=== PATIENT | male | born 1945 | race Caucasian/White ===

== ENCOUNTER 2018-06-04 11:00 | Inpatient (IN) ==
[2018-06-04 13:42] LABS: Appearance,Urine CLEAR; Bilirubin,Urine NEG (NEG); Color,Urine STRAW; Glucose,Urine (UA) NEGATIVE (NEG); Leukocyte Esterase,Urine NEG /uL (NEG); Protein,Urine NEG (NEG); Specific Gravity,Urine 1.011 (1.000-1.035); Urine Blood NEG mg/dL (<0.03); Urobilinogen,Urine NEG (NEG)
[2018-06-04 15:17] LABS: Basophils # (Auto) 0 K/mcL (0.0-0.3); Basophils % (Auto) 0.6 % (0.0-2.0); Eosinophils # (Auto) 0.4 K/mcL (0.0-0.7); Eosinophils % (Auto) 5.9 % (0.0-7.0); Granulocytes % (Auto) 53.6 % (38.0-78.0); Lymphocytes # (Auto) 2.2 K/mcL (1.5-4.8); Lymphocytes % (Auto) 33.2 % (15.5-49.0); Mean Cell Volume 88.3 fL (80.0-100.0); Mean Corpuscular HGB Conc 33.4 g/dL (31.0-36.0); Mean Corpuscular Hemoglobin 29.5 pg (26.0-34.0); Monocytes # (Auto) 0.4 K/mcL (0.1-0.9); Monocytes % (Auto) 6.7 % (1.0-12.0); Platelet Count 246 K/mcL (140-440); RBC 5.08 M/mcL (4.50-5.90); Red Cell Distribution Width 14.7 % (11.5-14.5)
[2018-06-04 15:42] LABS: Blood Urea Nitrogen 16 mg/dl (8-23)
[2018-06-10] MEDS ORDERED: ceFAZolin 1 GM VIAL IV SCH (07:00)
[2018-06-10] MEDS ORDERED: CELECOXIB 200 MG CAPSULE PO SCH (07:00)
[2018-06-10] MEDS ORDERED: oxyCODONE 10 MG TAB.ER.12H PO SCH (07:00)
[2018-06-10] MEDS ORDERED: PREGABALIN 75 MG CAPSULE PO SCH (07:00)
[2018-06-10] MEDS ORDERED: LIDOCAINE HCL/PF 100 MG/5 ML SYRINGE IV ONE (07:45)
[2018-06-10] MEDS ORDERED: ONDANSETRON 4 MG/2 ML VIAL IV ONE (07:45)
[2018-06-10] MEDS ORDERED: PROPOFOL 200 MG/20 ML VIAL IV ONE (07:45)
[2018-06-10] MEDS ORDERED: MIDAZOLAM 2 MG/2 ML VIAL IV ONE (07:45)
[2018-06-10] MEDS ORDERED: PHENYLEPHRINE 10 MG/ML VIAL IV ONE (07:45)
[2018-06-10] MEDS ORDERED: TRANEXAMIC ACID 1,000 MG/10 ML VIAL IV ONE ×2 (07:45→09:27)
[2018-06-10] MEDS ORDERED: KETAMINE 100 MG/ML ML IV ONE (07:45)
[2018-06-10] MEDS ORDERED: GLYCOPYRROLATE 0.2 MG/ML VIAL IV ONE (07:45)
[2018-06-10] MEDS ORDERED: HEPARIN 10,000 UNIT/ML VIAL IR ONE (08:21)
[2018-06-10] MEDS ORDERED: HEPARIN 20,000 UNIT/ML VIAL IR ONE (08:28)
[2018-06-10] MEDS ORDERED: MEPERIDINE 25 MG/ML SYRINGE IV PRN (09:27)
[2018-06-10] MEDS ORDERED: HYDROmorphone 2 MG/ML VIAL IV PRN (09:27)
[2018-06-10] MEDS ORDERED: BISACODYL 10 MG SUPP.RECT PR PRN (09:27)
[2018-06-10] MEDS ORDERED: METHOCARBAMOL 1,000 MG/10 ML VIAL IV PRN (09:27)
[2018-06-10] MEDS ORDERED: IPRATROPIUM/ALBUTEROL 3 ML AMPUL.NEB NEB PRN (09:27)
[2018-06-10] MEDS ORDERED: BENZOCAINE/MENTHOL 1 LOZENGE PO PRN (09:27)
[2018-06-10] MEDS ORDERED: PROMETHAZINE 25 MG/ML VIAL IV PRN (09:27)
[2018-06-10] MEDS ORDERED: FLEETS ADULT ENEMA PR PRN (09:27)
[2018-06-10] MEDS ORDERED: fentaNYL 100 MCG/2 ML VIAL IV PRN (09:27)
[2018-06-10] MEDS ORDERED: MAGNESIUM HYDROXIDE 30 ML ORAL.SUSP PO PRN (09:27)
[2018-06-10] MEDS ORDERED: POLYETHYLENE GLYCOL 3350 17 GM PACKET PO PRN (09:27)
[2018-06-10] MEDS ORDERED: ACETAMINOPHEN 1,000 MG/100 ML BOTTLE IV ONE (09:27)
[2018-06-10] MEDS ORDERED: ONDANSETRON 4 MG/2 ML VIAL IV PRN (09:27)
--- NOTE | 2018-06-10 09:27 | Brief Operative Note ---
Date of procedure: 06/10/18 Pre-op diagnosis: Right hip severe DJD Post-op diagnosis: same Procedure: Right anterior total hip arthroplasty Grafts/Implants: Yes (Depuy Actis 6 Hi stem, +5 36 delta head, 54 cup, neutral altrx liner) Anesthesia: spinal, GLMA Findings: severe arthritis Complications: other (femur fracture) Complications Description: 06/10/18 09:26 crack in calcar while impacting the final stem, placed a cerclage wire Surgeon: Malvin Harkins Cotton Roll Packer: Obinna David Estimated blood loss (cc): 250 Specimens Removed/Pathology: none sent Condition: stable Disposition: PACU
[2018-06-10] MEDS ORDERED: LACTATED RINGERS 1,000 ML IV SCH (09:30)
--- NOTE | 2018-06-10 10:28 | Operative Note ---
DATE OF OPERATION: 06/10/2018 PREOPERATIVE DIAGNOSIS: Right hip severe osteoarthritis. POSTOPERATIVE DIAGNOSIS: Right hip severe osteoarthritis. PROCEDURE PERFORMED: Right anterior total hip arthroplasty placing a DePuy Actis size 6 high offset femoral stem; a +5, 36 mm delta ceramic head; a 54 [place] cup with a neutral Altrx liner. SURGEON: Malvin Harkins M.D. WAITER WAITRESS: Rigoberto David PA-C. ANESTHESIA: Spinal plus general. DRAINS: None. SPECIMENS: None. COMPLICATIONS: Calcar fracture upon implanting the stem which was treated with a cerclage cable. POSTOPERATIVE CONDITION: Stable. INDICATIONS FOR SURGERY: This is a 73-year-old male who has had longstanding worsening right hip pain. Radiographs showed severe ldfi-[id number] osteoarthritis. FINDINGS AT SURGERY: Severe arthritis. Post implantation showed acceptable limb alignment and length and offset. PROCEDURE IN DETAIL: The patient had been seen preoperatively and informed consent had been obtained after discussion of risks and benefits of surgery. Risks including, but not limited to, bleeding, possibly requiring transfusion; infection, possibly requiring implant removal and prolonged IV antibiotics; injury to nerves, blood vessels, other surrounding structures; anesthetic risks; incomplete or no resolution of symptoms; leg length discrepancy; dislocation; fracture; DVT and pulmonary embolus risks; and the possibility of needing further revision surgery. He understood these risks and wished to proceed. Correct operative site was marked and then patient received spinal anesthesia. He was then taken to the operating room and LMA general given. The patient was carefully positioned on the fracture table and the right hip and groin were carefully prepped and draped in normal sterile fashion, and timeout was performed verifying patient name, operative site, and plan. Standard anterior approach incision was made with a scalpel through skin and subcutaneous tissue. Hemostasis was obtained with Bovie cautery. Careful blunt dissection was taken down onto the tensor fascia, and this was undermined circumferentially. We then irrigated with Irrisept. We then placed a ring retractor. We then incised the tensor fascia in line with the muscle fibers. Careful blunt dissection was taken medial to the muscle belly and blunt cobra retractors were placed on the superior and inferior neck. The circumflex vessels were coagulated and cut and split and vastus fascia split distally. Anterior capsulectomy was performed and capsule releases taken out to the trochanters. A corkscrew was placed in the femoral head and then osteotome was used under fluoro to identify our neck cut. We then made our neck cut. Due to the tightness of the hip, we went ahead and did a napkin ring resection. However, we did notice that the femoral head split upon placement of the corkscrew. This necessitated taking the head out in fragments. We then exposed the acetabulum. Labrum was excised circumferentially. We then began medializing with the reamer directly until we were down to the teardrop. We then started increasing reamer size and angle until we got some rim ream with a 53 reamer. We opened a 54 cup. The acetabulum was irrigated with Irrisept. After a minute we pulse lavaged copiously with saline, and then using the [id number] we impacted the cup at approximately 35 degrees of inclination and 25 degrees of anteversion. We did get excellent press-fit, so we removed the [id number] and placed a center hole cover. Anterior and inferior osteophytes were removed with a curved osteotome and then a neutral Altrx liner was carefully aligned and impacted. We then released traction from the leg, externally rotated and released capsule around the medial and posterior neck. We then extended and adducted the leg and released capsule out to the greater trochanter. Once we had adequate exposure, we used a box osteotome to open the canal and then an awl to identify canal trajectory. We then used a rasp and rongeur to lateralize and then began sequentially broaching with the [id number]. We went up to a size 5, which we did minimal calcar planing. A high offset neck trial was placed and a +1 head ball. The hip reduced very easily. We then took AP pelvis of the hip to verify neutral rotation and then an AP of the nonoperative and operative hips were taken and overlaid. Our leg lengths did not appear way different, however, we did note that the stem appeared undersized. We went ahead and redislocated and exposed the proximal femur. I was able to impact with the [id number]. The size 5 broached down a few millimeters below our neck cut, so we removed the 5 broach, went up to a size 6. This seated right at our neck cut. We went ahead and removed the 6 broach. We irrigated with Irrisept. After a minute, pulse lavaged with saline. The 6 stem was started with the handle until we got down to about a centimeter from the collar seating. We then used the [id number] and upon impacting with [id number], we noticed a crack in the calcar. We at this point stopped impacting and placed a cerclage cable, [place] cable, which was tensioned. We verified reduction under fluoro and good position. The cable was placed below the greater but above the lesser trochanter. We then crimped this and cut the cable, re-exposed the proximal femur and completed the impaction of the stem down onto the calcar. We then decided to go with a +5 head ball due to the decreased offset, so we went ahead and cleaned and dried the stem. A +5, 36 head ball was impacted. The hip was reduced. There was better tension this time. Final fluoro images were taken and saved which showed good component position and leg length with slight under offset. These images were saved and printed. We irrigated with Irrisept, after a minute we pulse lavaged with saline. We then used #1 Vicryl running stitch; one proximal, one running distal. We removed the ring retractor and irrigated Irrisept again. After a minute pulse lavaged with saline and then tacked fat to fascia with Vicryl and 2-0 Monocryl for subcutaneous and madi for skin. Xeroform and sterile dressing were applied. The patient was then awakened, extubated, and transferred to recovery in stable condition. ISABEL:dung Job ID: [id number] Doc ID: [id number] Malvin Harkins MD
[2018-06-10] MEDS: 0.9 % SODIUM CHLORIDE 1,000 ML IV SCH ×2 (10:46→21:30)
--- NOTE | 2018-06-10 11:22 | XRay Report ---
CLINICAL INFORMATION: Post-op Total Hip COMPARISON: None. FINDINGS: Total hip prostheses is anatomically aligned. There is minimal degeneration in both SI joints. Left hip is normal. Soft tissue swelling over the surgical site seen - as expected. IMPRESSION: Negative Interpreted and Authenticated by: Dustin Augustine 06/10/18
[2018-06-10] MEDS ORDERED: 0.9 % SODIUM CHLORIDE 500 ML IV ONE (12:51)
[2018-06-10] MEDS: 0.9 % SODIUM CHLORIDE 10 ML SYRINGE IV SCH ×2 (12:58→23:48)
[2018-06-10] MEDS: KETOROLAC 15 MG/ML VIAL IV PRN ×2 (15:09→21:23)
[2018-06-10] MEDS: ceFAZolin 1 GM VIAL IV SCH ×2 (15:09→23:25)
[2018-06-10] MEDS: oxyCODONE/APAP 5/325MG TABLET PO PRN (15:10)
--- NOTE | 2018-06-10 16:11 | XRay Report ---
CLINICAL INFORMATION: RIGHT TOTAL HIP ARTHROPLASTY-ANTERIOR COMPARISON: None. FINDINGS: Multiple digital images are submitted from the operating room there are placement of a total right hip prostheses - anterior approach. Final film shows right total hip prostheses anatomically aligned. Cerclage wire buttressing the intertrochanteric region. No osseous abnormality. IMPRESSION: Right total hip prostheses in anatomic alignment. Interpreted and Authenticated by: Dustin Augustine 06/10/18
[2018-06-10] MEDS ORDERED: SENNOSIDES 1 TABLET PO SCH (21:00)
[2018-06-10] MEDS: ASPIRIN 325 MG ENTERIC COATED TABLET PO SCH (21:23)
[2018-06-10] MEDS: DOCUSATE SODIUM 100 MG CAPSULE PO SCH (21:23)
[2018-06-11] MEDS: 0.9 % SODIUM CHLORIDE 10 ML SYRINGE IV SCH (04:54)
[2018-06-11] MEDS: 0.9 % SODIUM CHLORIDE 1,000 ML IV SCH (04:54)
[2018-06-11] MEDS ORDERED: OMEPRAZOLE 20 MG CAPSULE PO SCH (07:30)
--- NOTE | 2018-06-11 07:41 | Discharge Summary ---
Providers - Providers Patient information: Note initiated : 06/11/18 at 7:39 am Service Date, if different from initiated Date: [] Patient: Josue Herrera 73 y/o M admitted on 06/10/18 for Right Total Hip Arthroplasty. Chief Complaint: [] Discharge date: 06/11/18 Hospitalization Hospital course: Pt was admitted for a LINDA, Pt underwent the procedure the day of admission. Pt spent one night on the floor for IV pain meds, IV abx and PT. Discharged on post -op day 1. Will use ASA for DVT prophylaxis and attend out-pt PT. Discharge diagnosis: R Hip OA Exam - Exam Clean and dry: Yes Weight bearing status: as tolerated Ortho Discharge - LINDA - Patient Instructions Diet: Regular Diet Activity: activity as tolerated Total Hip Protocol: Follow activity instructions as provided by Physical Therapy. Dressing Care: May shower in 2 days - Follow Up Plan Disposition: Home, Self-Care Prognosis: Good Rehab Potential: Good Overall status at discharge: patient is progressing back to baseline - Orders For Discharge Prescriptions: Aspirin [Ecotrin] 325 mg PO BID #60 tab.ec HYDROcodone/ACETAMINOPHEN [[place] 10-325 Tablet] 1 - 2 each PO Q4-6HP PRN #90 tab PRN Reason: Pain Pending Studies Resuscitation Status Full Code Diet Regular Diet Start FriJun 10 [id number] Aspirin (Ecotrin) 325 mg PO BID ON LICENSE OF [facility] Last Admin: 06/10/18 21:23 Dose: 325 mg Docusate Sodium (Colace) 100 mg PO BID ON LICENSE OF [facility] Last Admin: 06/10/18 21:23 Dose: 100 mg Hydromorphone HCl (Dilaudid) 0 mg IV Q2HP PRN PRN Reason: PAIN LEVEL > 6 Last Admin: 06/10/18 23:24 Dose: 2 mg Sodium Chloride (Sodium Chloride 0.9%) 1,000 mls @ 100 mls/hr IV .Q10H ON LICENSE OF [facility] Last Infusion: 06/11/18 07:24 Dose: 100 mls/hr Admin: 06/11/18 04:54 Dose: Not Given Admin: 06/10/18 21:30 Dose: 100 mls/hr Infusion: 06/10/18 20:46 Dose: 100 mls/hr Admin: 06/10/18 10:46 Dose: 100 mls/hr Ketorolac Tromethamine (Toradol) 15 mg IV Q6HP PRN PRN Reason: Pain Stop: 06/12/18 09:31 Last Admin: 06/10/18 21:23 Dose: 15 mg Admin: 06/10/18 15:09 Dose: 15 mg Omeprazole (Prilosec) 20 mg PO ACB MARCELLA Last Admin: 06/11/18 07:39 Dose: 20 mg Ondansetron HCl (Zofran) 4 mg IV Q4HP PRN PRN Reason: Nausea And Vomiting Last Admin: 06/11/18 02:00 Dose: 4 mg Oxycodone/Acetaminophen (Percocet 5-325 Mg) 0 tab PO Q4HP PRN PRN Reason: PAIN LEVEL 3-6 Last Admin: 06/10/18 15:10 Dose: 2 tab Senna (Senokot) 2 tab PO HS MARCELLA Last Admin: 06/10/18 21:22 Dose: 2 tab Sodium Chloride (Saline Flush) 10 ml IV Q8 MARCELLA Last Admin: 06/11/18 04:54 Dose: Not Given Admin: 06/10/18 23:48 Dose: Not Given Admin: 06/10/18 12:58 Dose: Not Given Shift Summary 06/11/18 04:45 Shift Summary by Jae Jama RM 126 Josue Herrera BS 250 @ 1920, PVR 292; Pt is A/O. Ambulated 16 with FWW in room; Feeling the urge to pee, but having difficulty @ 0206. 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 Voided 180 @ 0330 PVR 409; Voided in toilet @ 0345 PVR 116; IV toradol 2123, IV Dilaudid 2mg @ 2324 & Ice pack for pain: Has foot pumps on. Please disregard prior notation, as that is for another pt. Initialized on 06/11/18 04:45 - END OF NOTE
[2018-06-11] MEDS: KETOROLAC 15 MG/ML VIAL IV PRN (08:27)
[2018-06-11] MEDS ORDERED: HYDROCHLOROTHIAZIDE 12.5 MG CAPSULE PO SCH (09:00)
[2018-06-11] MEDS: ASPIRIN 325 MG ENTERIC COATED TABLET PO SCH (09:27)
[2018-06-11] MEDS: DOCUSATE SODIUM 100 MG CAPSULE PO SCH (09:27)
[2018-06-11] MEDS: oxyCODONE/APAP 5/325MG TABLET PO PRN (09:31)
== END 2018-06-11 12:20 | disposition home or self-care (01) | DRG 470 ==
LOC: MEDSUR 06-10 04:49 → EDSTATUS 06-10 07:30
PROVIDERS: ADMIT Orthopaedic Surgery; ATTEND Orthopaedic Surgery
CPT/HCPCS: 62322; 73502; 97161; C1776; J0131; J0690; J1170; J1644; J1885; J2001; J2250; J2370; J2405; J7030; J7040; J7120